=== PATIENT | male | born 1945 | race Caucasian/White ===

== ENCOUNTER 2025-08-13 13:36 | Emergency (ER) | payer BC, SELFPAY ==
[2025-08-13 13:38] VITALS: BP 132/56; PULSE 73; RESP 16; TEMP 36.4; O2SAT 99; BMI 33.0
--- NOTE | 2025-08-13 13:40 | ECG_ITS ---
APPROVED REPORT Exam: Resting ECG HR:84 bpm ECG Measurements Heart Rate 84 AXES WV 163 P 47 QRSd 93 QRS 5 QT 367 T 56 QTc 408 Conclusion SINUS RHYTHM NORMAL ECG Electronically signed by : VIDYA SHEPARD, 08/15/2025 13:59:23
--- NOTE | 2025-08-13 13:41 | XR_ITS ---
FINAL REPORT CLINICAL HISTORY: syncope FINDINGS: A portable view of the chest is obtained. There is no prior exam for comparison. Cardiac and mediastinal silhouettes are normal. The lungs are clear. There is no pleural effusion or pneumothorax. IMPRESSION: No acute process on this portable exam. Reviewed, Interpreted and Dictated by Yudith Trinidad MD Transcribed by Sherine Russell Authenticated and [facility]
--- NOTE | 2025-08-13 13:47 | CT_ITS ---
FINAL REPORT TECHNIQUE: Pre-and postcontrast images of the abdomen through the pelvis were performed by computed tomography. A CTA was performed for evaluation of GI bleed. This study was performed with techniques to keep radiation doses as low as reasonably achievable (ALARA). Individualized dose reduction techniques using automated exposure control or adjustment of mA and/or kV according to the patient's size were employed. CLINICAL HISTORY: gi bleed COMPARISON: None FINDINGS: CTA: No abdominal aortic aneurysm or aortic dissection. The mesenteric vessels and renal arteries are patent. There is mild bilateral renal artery stenosis. The bilateral common iliac arteries, internal iliac arteries, and external iliac arteries are patent without stenosis. No site of active GI hemorrhage identified. NONVASCULAR: Gallbladder is absent. The liver, spleen, and adrenal glands are unremarkable. There are calcifications in the body of the pancreas. Mild dilatation of the distal pancreatic duct is noted. No discrete mass identified. This could be related to chronic pancreatitis. No evidence of acute pancreatitis. There are bilateral nonobstructing renal stones. Bilateral hypodense renal lesions are likely cysts. There is no hydronephrosis. GI tract demonstrates no evidence of bowel obstruction. Surgical anastomosis is noted within the small bowel loops in the left abdomen. The appendix is not seen and there are no secondary signs of acute appendicitis. There is diverticulosis without evidence of diverticulitis. No lymphadenopathy. No free fluid is seen. IMPRESSION: No site of active GI hemorrhage. Mild bilateral renal artery stenosis. Aortic branch vessels are patent without significant stenosis. Calcifications in the body of the pancreas with distal pancreatic duct dilatation could be related to chronic pancreatitis. Consider MRCP without and with contrast on a nonemergent basis. Reviewed, Interpreted and Dictated by Yudith Trinidad MD Transcribed by Sherine Russell Authenticated and [facility]
--- NOTE | 2025-08-13 13:49 | ED_ITS ---
<Statement entered by Renay Hayes MD - 08/17/25 08:54> I was consulted by the GENE, and we discussed the complexity of the problems being addressed. I approved the treatment and management plan for this patient's care in the emergency department, thus performing a substantive portion of the medical decision making. Renay Hayes MD, TEE, FACEP Discharge Plan Disposition Patient Disposition: Xfer SNF Referrals Follow up/Referrals: Nicolás Gomez MD [Primary Care Provider, Internal Medicine] - See instructions Clinical Impressions Clinical Impression: Vasovagal syncope, GI bleed Stand Alone Forms Stand Alone Forms: Transfer Record - ED Instructions Patient Instructions: DI for Syncope in Adults (Fainting) Print Language Print Language: Gibralt[place] Discharge ED Provider: Renay Hayes General Adult HPI <Luli Tolentino (ED), NOZZLE TENDER - Last Filed: 08/13/25 15:33> General Chief complaint: Syncope Stated complaint: Syncope Time Seen by Provider: 08/13/25 13:40 History of Present Illness HPI narrative: 80-year-old male presents to the ED today with complaints of near syncopal episode an hour ago. They called EMS because he had a dark red stool. He was not having abdominal pain at the time. He got pale diaphoretic and almost passed out. He arrived to the ER in stable condition. Patient has had a history of a bowel resection where he had a microperforation in the past. He does have some hypertension where he takes medication for this. He has no shortness of breath no chest pain. He does have the need to have another bowel movement here in the ED. Patient appears well. 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 Social History (Updated 08/13/25 @ 15:33 by Luli Tolentino (ED), NOZZLE TENDER) Smoking Status: Never smoker alcohol intake: former current occupational status: other Travel in the last 8 weeks?: None Have you lived/traveled outside US in past 30 days?: No Contact w/someone who lives/traveled outside US past 30 days?: No Exposure to someone with infectious disease in past 14 days?: No Do you have a fever (greater than 100.4 F or 38 C)?: No Have you tested positive for COVID-19?: No Exposed to someone with COVID-19 in past 14 days?: No Do you have a sore throat?: No Do you have a cough?: No Do you have any weakness?: No Do you have any diarrhea?: No Are you experiencing any unusual bleeding?: No Do you have any muscle aches/pain?: No Do you have any abdominal pain?: No Are you experiencing loss of taste or smell?: No <Luli Tolentino (ED), NOZZLE TENDER - Last Filed: 08/13/25 15:33> ROS Obtained: Yes Systems reviewed as appropriate & no additional complaints except as documented Constitutional Constitutional: Reports as per HPI Physical Exam <Luli Tolentino (ED), NOZZLE TENDER - Last Filed: 08/13/25 15:33> General General appearance: alert Head Head exam: normocephalic Eye Eye exam: Present PERRL and EOMI ENT ENT exam: Present normal oropharynx and mucous membranes moist Neck Neck exam: Present full ROM and trachea midline Respiratory Respiratory exam: Present normal lung sounds bilaterally Cardiovascular Cardiovascular exam: Present regular rate, normal rhythm, normal heart sounds, +S1 and +S2 Abdominal Exam Abdominal exam: Present soft, tenderness and normal bowel sounds Abdominal tenderness: Present LLQ Extremities Exam Extremities exam: Present normal inspection, full ROM and normal capillary refill Neurological Exam Neurological exam: Present alert and oriented X3 Skin Skin exam: Present warm and dry Medical Decision Making <Luli Tolentino (ED), NOZZLE TENDER - Last Filed: 08/13/25 15:33> Medical Records Screening: Per USPSTF and CDC recommendations, given the prevalence of disease in our region, it is our hospital?s policy to screen for HIV and viral Hepatitis for all patients aged 18 and over and those with ongoing risk factors. [place] Inquiry Pt receiving controlled substance: No [place] was queried for this patient: No Vital Signs: 08/13/25 13:38 08/13/25 13:38 08/13/25 14:04 Temperature 97.6 F 97.6 F Temperature Source Oral Oral Pulse Rate 73 Pulse Rate [Right] 73 Respiratory Rate 16 16 Blood Pressure 132/56 L Blood Pressure [Right Arm] 132/56 L Blood Pressure Mean Blood Pressure Mean [Right Arm] 81 Blood Pressure Source Automatic Cuff Blood Pressure Source [Right Arm] Automatic Cuff Blood Pressure Position Supine Blood Pressure Position [Right Arm] Supine 02 Sat by Pulse Oximetry 99 99 99 Oxygen Delivery Method Room Air Room Air Room Air 08/13/25 14:30 08/13/25 16:38 Temperature 98 F Temperature Source Pulse Rate 89 81 Pulse Rate [Right] Respiratory Rate 16 18 Blood Pressure 123/65 121/62 Blood Pressure [Right Arm] Blood Pressure Mean 79 Blood Pressure Mean [Right Arm] Blood Pressure Source Blood Pressure Source [Right Arm] Blood Pressure Position Blood Pressure Position [Right Arm] 02 Sat by Pulse Oximetry 98 Oxygen Delivery Method Lab Data Lab Results 08/13/25 13:40: WBC 9.2, RBC 4.40 L, Hgb 12.6 L, Hct 38.1 L, MCV 86.6, MCH 28.6, MCHC 33.1, RDW 14.1, Plt Count 210, MPV 9.6, Neut % (Auto) 66.6, Lymph % (Auto) 25.0, [place] % (Auto) 6.9, Eos % (Auto) 0.5, Baso % (Auto) 0.8, Neut # (Auto) 6.1, Lymph # (Auto) 2.3, [place] # (Auto) 0.6, Eos # (Auto) 0.1, Baso # (Auto) 0.1, PT 10.8, INR 0.97, APTT 21.6 L, Sodium 142, Potassium 4.1, Chloride 109 H, Carbon Dioxide 21 L, Anion Gap 16.1 H, BUN 20, Creatinine 1.00, Estimated GFR 72, Est GFR ( Amer) 87, Glucose 162 H, Calcium 8.4, Magnesium 2.1, Total Bilirubin 0.6, AST 32, ALT 28, Alkaline Phosphatase 72, Troponin I < 0.01, Total Protein 6.7, Albumin 3.8, Globulin 2.9, Albumin/Globulin Ratio 1.3, Lipase 59 08/13/25 14:25: WBC 7.5, RBC 3.70 L, Hgb 10.8 L D, Hct 32.6 L, MCV 88.1, MCH 29.2, MCHC 33.1, RDW 14.2, Plt Count 165, MPV 9.2, Neut % (Auto) 79.0, Lymph % (Auto) 13.8, [place] % (Auto) 6.0, Eos % (Auto) 0.4, Baso % (Auto) 0.5, Neut # (Auto) 6.0, Lymph # (Auto) 1.0, [place] # (Auto) 0.5, Eos # (Auto) 0.0, Baso # (Auto) 0.0, Blood Type O Positive, Antibody Screen Negative 08/13/25 14:25 08/13/25 13:40 Orders (Tests/Meds): ED MEDICATIONS Discontinued Medications Generic Name Dose Route Start Last Admin Trade Name Freq PRN Reason Stop Dose Admin Sodium Chloride 1,000 mls @ 999 mls/hr 08/13/25 13:41 08/13/25 14:37 Sod Chlor 0.9% 1000ml Bag IV 08/13/25 14:41 Not Given .Q1H1M ONE Iopamidol 80 ml 08/13/25 14:14 08/13/25 14:15 Iopamidol-370 (76%);100ml Bottle IV 08/13/25 14:15 80 ml ONCE ONE Administration Sodium Chloride 10 ml 08/13/25 14:14 08/13/25 14:15 Sodium Chloride 0.9% 10ml Syr (Rad Only) IV 08/13/25 14:15 10 ml ONCE ONE Administration Sodium Chloride 50 ml 08/13/25 14:14 08/13/25 14:15 0.9 % Sodium Chloride 50 Ml Vial IV 08/13/25 14:15 50 ml ONCE ONE Administration ORDERS Category Date Time Status Type and Screen Stat BBK 08/13/25 14:[address] angio abd/pel - GI Bleed Stat Cat Scan 08/13/25 13:47 Completed Chest XR -- portable [XR chest portable] Stat Exams 08/13/25 13:41 Completed CBC [Complete Blood Count Auto Diff] Stat Lab 08/13/25 13:40 Completed CBC w/Auto Diff [Complete Blood Count Auto Diff] Stat Lab 08/13/25 14:25 Completed Comprehensive Metabolic Panel Stat Lab 08/13/25 13:40 Completed Lipase Stat Lab 08/13/25 13:40 Completed Magnesium Stat Lab 08/13/25 13:40 Completed PT INR [Prothrombin Time INR] Stat Lab 08/13/25 13:40 Completed PTT [Activated Partial Thrombo Time] Stat Lab 08/13/25 13:40 Completed Trop I [Troponin I] Stat Lab 08/13/25 13:40 Completed Medical Decision Narrative: patient is a 80-year-old male presenting to the emergency department for evaluation of presyncopal episode, dark red blood in stool. Patient is hemodynamically stable and nontoxic-appearing upon arrival, afebrile. Differential diagnosis includes GI bleed, among others. Workup will be conducted with hematologic labs, specific imaging. Initial inventions include crystalloid bolus, analgesics, antibiotics. Initial workup reviewed by [place] hematologic labs are remarkable forWhite count was 7.5, H&H initially was 12.6 and 38.1 seconds H&H was 10.8 and 32.6. Patient's BUN and creatinine were normal at 28 and 1 troponin was less than 0.01 CTA showed no obvious active GI hemorrhage but consider MRCP. I did talk to Dr. Hayes about this patient. He suggest talking to about transfer for a GI bleed. I talked to Dr. Cortes at [facility] about this patient. We suspect a diverticular bleed. Patient will go to [facility] ER. Patient safe for transfer. <Renay Hayes MD - Last Filed: 08/17/25 08:55> Vital Signs: 08/13/25 13:38 08/13/25 13:38 08/13/25 14:04 Temperature 97.6 F 97.6 F Temperature Source Oral Oral Pulse Rate 73 Pulse Rate [Right] 73 Respiratory Rate 16 16 Blood Pressure 132/56 L Blood Pressure [Right Arm] 132/56 L Blood Pressure Mean Blood Pressure Mean [Right Arm] 81 Blood Pressure Source Automatic Cuff Blood Pressure Source [Right Arm] Automatic Cuff Blood Pressure Position Supine Blood Pressure Position [Right Arm] Supine 02 Sat by Pulse Oximetry 99 99 99 Oxygen Delivery Method Room Air Room Air Room Air 08/13/25 14:30 08/13/25 16:38 Temperature 98 F Temperature Source Pulse Rate 89 81 Pulse Rate [Right] Respiratory Rate 16 18 Blood Pressure 123/65 121/62 Blood Pressure [Right Arm] Blood Pressure Mean 79 Blood Pressure Mean [Right Arm] Blood Pressure Source Blood Pressure Source [Right Arm] Blood Pressure Position Blood Pressure Position [Right Arm] 02 Sat by Pulse Oximetry 98 Oxygen Delivery Method Lab Data Lab Results 08/13/25 13:40: WBC 9.2, RBC 4.40 L, Hgb 12.6 L, Hct 38.1 L, MCV 86.6, MCH 28.6, MCHC 33.1, RDW 14.1, Plt Count 210, MPV 9.6, Neut % (Auto) 66.6, Lymph % (Auto) 25.0, [place] % (Auto) 6.9, Eos % (Auto) 0.5, Baso % (Auto) 0.8, Neut # (Auto) 6.1, Lymph # (Auto) 2.3, [place] # (Auto) 0.6, Eos # (Auto) 0.1, Baso # (Auto) 0.1, PT 10.8, INR 0.97, APTT 21.6 L, Sodium 142, Potassium 4.1, Chloride 109 H, Carbon Dioxide 21 L, Anion Gap 16.1 H, BUN 20, Creatinine 1.00, Estimated GFR 72, Est GFR ( Amer) 87, Glucose 162 H, Calcium 8.4, Magnesium 2.1, Total Bilirubin 0.6, AST 32, ALT 28, Alkaline Phosphatase 72, Troponin I < 0.01, Total Protein 6.7, Albumin 3.8, Globulin 2.9, Albumin/Globulin Ratio 1.3, Lipase 59 08/13/25 14:25: WBC 7.5, RBC 3.70 L, Hgb 10.8 L D, Hct 32.6 L, MCV 88.1, MCH 29.2, MCHC 33.1, RDW 14.2, Plt Count 165, MPV 9.2, Neut % (Auto) 79.0, Lymph % (Auto) 13.8, [place] % (Auto) 6.0, Eos % (Auto) 0.4, Baso % (Auto) 0.5, Neut # (Auto) 6.0, Lymph # (Auto) 1.0, [place] # (Auto) 0.5, Eos # (Auto) 0.0, Baso # (Auto) 0.0, Blood Type O Positive, Antibody Screen Negative Orders (Tests/Meds): ED MEDICATIONS Discontinued Medications Generic Name Dose Route Start Last Admin Trade Name Freq PRN Reason Stop Dose Admin Sodium Chloride 1,000 mls @ 999 mls/hr 08/13/25 13:41 08/13/25 14:37 Sod Chlor 0.9% 1000ml Bag IV 08/13/25 14:41 Not Given .Q1H1M ONE Iopamidol 80 ml 08/13/25 14:14 08/13/25 14:15 Iopamidol-370 (76%);100ml Bottle IV 08/13/25 14:15 80 ml ONCE ONE Administration Sodium Chloride 10 ml 08/13/25 14:14 08/13/25 14:15 Sodium Chloride 0.9% 10ml Syr (Rad Only) IV 08/13/25 14:15 10 ml ONCE ONE Administration Sodium Chloride 50 ml 08/13/25 14:14 08/13/25 14:15 0.9 % Sodium Chloride 50 Ml Vial IV 08/13/25 14:15 50 ml ONCE ONE Administration ORDERS Category Date Time Status Type and Screen Stat BBK 08/13/25 14:[address] angio abd/pel - GI Bleed Stat Cat Scan 08/13/25 13:47 Completed Chest XR -- portable [XR chest portable] Stat Exams 08/13/25 13:41 Completed CBC [Complete Blood Count Auto Diff] Stat Lab 08/13/25 13:40 Completed CBC w/Auto Diff [Complete Blood Count Auto Diff] Stat Lab 08/13/25 14:25 Completed Comprehensive Metabolic Panel Stat Lab 08/13/25 13:40 Completed Lipase Stat Lab 08/13/25 13:40 Completed Magnesium Stat Lab 08/13/25 13:40 Completed PT INR [Prothrombin Time INR] Stat Lab 08/13/25 13:40 Completed PTT [Activated Partial Thrombo Time] Stat Lab 08/13/25 13:40 Completed Trop I [Troponin I] Stat Lab 08/13/25 13:40 Completed Medical Decision Narrative: patient is a 80-year-old male presenting to the emergency department for evaluation of presyncopal episode, dark red blood in stool. Patient is hemodynamically stable and nontoxic-appearing upon arrival, afebrile. Differential diagnosis includes GI bleed, among others. Workup will be conducted with hematologic labs, specific imaging. Initial inventions include crystalloid bolus, analgesics, antibiotics. Initial workup reviewed by [place] hematologic labs are remarkable forWhite count was 7.5, H&H initially was 12.6 and 38.1 seconds H&H was 10.8 and 32.6. Patient's BUN and creatinine were normal at 28 and 1 troponin was less than 0.01 CTA showed no obvious active GI hemorrhage but consider MRCP. I did talk to Dr. Hayes about this patient. He suggest talking to about transfer for a GI bleed. I talked to Dr. Cortes at [facility] about this patient. We suspect a diverticular bleed. Patient will go to [facility] ER. Patient safe for transfer. Rationale for transfer for the need for possible IR intervention if this were to continue, which we did not have at [facility]. Critical Care <Luli Tolentino (ED), NOZZLE TENDER - Last Filed: 08/13/25 15:33> Critical Care Time Critical Care Time: No <Renay Hayes MD - Last Filed: 08/17/25 08:55> Critical Care Time Critical Care Time: Yes Attestation: On 08/13/25, the high probability of a clinically significant, sudden or life threatening deterioration of the following system(s) required my full and direct attention, intervention and personal management. The time I documented below is in addition to time spent performing reported procedures but includes the following listed in this critical care notation. Total Time Total Critical Care Time: 35
[2025-08-13 13:51] LABS: Hematocrit 38.1 % (42.0-52.0); Hemoglobin 12.6 g/dL (14.1-18.0); Immature Granulocytes % 0.2 %; Mean Corpuscular HGB Conc 33.1 g/dL (31.8-35.4); Mean Corpuscular Hemoglobin 28.6 pg (27.0-31.2); Mean Corpuscular Volume 86.6 fl (80-94); Nucleated Red Blood Cells % 0 %; Platelet Count 210 K/mm3 (142-424); Red Blood Count 4.40 M/mm3 (4.60-6.20); Red Cell Distribution Width-SD 44.9 fL; White Blood Count 9.2 K/mm3 (4.8-10.8)
[2025-08-13 13:56] LABS: Albumin Level 3.8 g/dl (3.5-5.0); Chloride 109 mmol/L (98-107)
[2025-08-13 13:57] LABS: Potassium 4.1 mmoL/L (3.5-5.1); Sodium 142 mmol/L (136-145)
[2025-08-13 13:59] LABS: Alanine Aminotransferase 28 U/L (12-78); Albumin/Globulin Ratio 1.3 (1.1-1.8); Alkaline Phosphatase 72 U/L (38-126); Anion Gap 16.1 mEq/L (5-15); Aspartate Amino Transferase 32 U/L (17-59); Bilirubin,Total 0.6 mg/dl (0.2-1.3); Blood Urea Nitrogen 20 mg/dl (9-20); Carbon Dioxide 21 mmol/L (22.0-30.0); Creatinine,Serum 1.00 mg/dl (0.66-1.25); Estimated Glomerular Filt Rate 72 ml/min (>60); GFR (African American) 87 ML/MIN (>60); Globulin 2.9 g/dL (1.3-3.2); Total Protein,Serum 6.7 g/dl (6.3-8.2)
[2025-08-13 14:00] LABS: Calcium 8.4 mg/dl (8.4-10.2); Glucose 162 mg/dl (74-100); INR 0.97 (0.9-1.1); Lipase 59 U/L (23-300); Magnesium 2.1 mg/dl (1.6-2.3); Prothrombin Time 10.8 seconds (10.1-12.5)
[2025-08-13 14:04] VITALS: O2SAT 99
[2025-08-13 14:12] LABS: Troponin I < 0.01 ng/ml (0.00-0.034)
[2025-08-13] MEDS: 0.9 % SODIUM CHLORIDE 50 ML VIAL IV (14:15)
[2025-08-13] MEDS: SODIUM CHLORIDE 0.9% 10ML SYR (RAD ONLY) 10 ML IV (14:15)
[2025-08-13] MEDS: IOPAMIDOL-370 (76%);100ML BOTTLE 80 ML IV (14:15)
[2025-08-13 14:30] VITALS: BP 123/65; PULSE 89; RESP 16; O2SAT 98
[2025-08-13 14:42] LABS: Hematocrit 32.6 % (42.0-52.0); Immature Granulocytes % 0.3 %; Mean Corpuscular HGB Conc 33.1 g/dL (31.8-35.4); Mean Corpuscular Hemoglobin 29.2 pg (27.0-31.2); Mean Corpuscular Volume 88.1 fl (80-94); Nucleated Red Blood Cells % 0 %; Platelet Count 165 K/mm3 (142-424); Red Blood Count 3.70 M/mm3 (4.60-6.20); Red Cell Distribution Width-SD 46.0 fL; White Blood Count 7.5 K/mm3 (4.8-10.8)
[2025-08-13 14:53] LABS: Hemoglobin 10.8 g/dL (14.1-18.0)
[2025-08-13 14:54] LABS: Activated Partial Thrombo Time 21.6 seconds (22.8-30.6)
--- NOTE | 2025-08-13 15:14 | PC.NURSE ---
Called [facility] for transfer of patient, talked to [facility], gave info on patient, stated they would call back when have a provider
--- NOTE | 2025-08-13 15:18 | PC.NURSE ---
Images were also powershared to [facility]
--- NOTE | 2025-08-13 15:38 | PC.NURSE ---
report called to Sunni @ [facility]
--- NOTE | 2025-08-13 15:44 | PC.NURSE ---
Called EMS for this ALS transfer to [facility]. EMS advised had a truck out and would be here as soon as they could.
[2025-08-13 16:38] VITALS: BP 121/62; PULSE 81; RESP 18; TEMP 36.6; O2SAT 98
== END 2025-08-13 16:40 ==
PROVIDERS: Nurse Practitioner; Emergency Provider Student in an Organized Health Care Education/Training Program; PCP Internal Medicine Adolescent Medicine
DX: R55 Syncope and collapse (principal)
CPT/HCPCS: 71045; 74174; 80053; 83690; 83735; 84484; 85025; 85610; 85730; 86850; 93005; 99285; Q9967

== ENCOUNTER 2025-08-26 13:13 | Outpatient (CLI) | payer MEDICARE, SELFPAY ==
[2025-08-26 13:39] LABS: Hematocrit 23.5 % (42.0-52.0); Hemoglobin 7.3 g/dL (14.1-18.0); Mean Corpuscular HGB Conc 31.1 g/dL (31.8-35.4); Mean Corpuscular Hemoglobin 27.5 pg (27.0-31.2); Mean Corpuscular Volume 88.7 fl (80-94); Nucleated Red Blood Cells % 0 %; Platelet Count 329 K/mm3 (142-424); Red Blood Count 2.65 M/mm3 (4.60-6.20); Red Cell Distribution Width-SD 50.4 fL; White Blood Count 5.6 K/mm3 (4.8-10.8)
== END 2025-08-26 23:59 | disposition home or self-care (01) ==
DX: K92.2 Gastrointestinal hemorrhage, unspecified (principal); D62 Acute posthemorrhagic anemia
CPT/HCPCS: 36415; 85027